=== PATIENT | male | born 1980 | race Two or more races ===

== ENCOUNTER 2017-11-20 01:49 | Emergency (ER) | payer SELFPAY | END 2017-11-20 05:40 | disposition home or self-care (01) | LOC: FTE 01:49 | DX: S16.1XXA Strain of muscle, fascia and tendon at neck level, initial encounter (principal); S39.012A Strain of muscle, fascia and tendon of lower back, initial encounter; V49.40XA Driver injured in collision with unspecified motor vehicles in traffic accident, initial encounter | CPT/HCPCS: 72125; 72131; 99285-25 ==